=== PATIENT | female | born 1945 ===

== ENCOUNTER 2024-10-28 10:56 | Emergency (ER) | payer OTHER ==
[~2024-10-28] VITALS: Ht 149.9 cm; Wt 70.3 kg
[2024-10-28 11:09] VITALS: O2SAT 98
[2024-10-28] MEDS: METOCLOPRAMIDE HCL 10MG/2ML VIAL IV ONE (11:48)
[2024-10-28] MEDS: LACTATED RINGERS 1,000 ML IV SCH (11:48)
[2024-10-28 11:49] VITALS: BP 135/66; PULSE 65; RESP 18; TEMP 36.8; O2SAT 99
[2024-10-28] MEDS: ACETAMINOPHEN 1000MG/100ML 100 ML IV ONE (11:56)
[2024-10-28] MEDS ORDERED: NEOM1PAC6 TP (12:35)
== END 2024-10-28 13:29 | disposition home or self-care (01) ==
LOC: ER 10:56
DX: R51.9 Headache, unspecified (principal); L03.011 Cellulitis of right finger; H11.31 Conjunctival hemorrhage, right eye; I10 Essential (primary) hypertension
CPT/HCPCS: 99285; 96365; 70450; 96375; J2765; J0131